=== PATIENT | female | born 1960 | race Hispanic/Latino ===

== ENCOUNTER 2024-11-11 08:02 | Emergency (ER) | payer BC ==
[~2024-11-11] VITALS: Ht 162.6 cm; Wt 73.7 kg
[2024-11-11] MEDS ORDERED: OLMESARTAN-HCT1 EAC1 (08:23)
[2024-11-11] MEDS ORDERED: OMEPRAZOLE40 MG PO (08:23)
[2024-11-11] MEDS ORDERED: ZEPBOUND2.5 MG/0.1 (08:23)
[2024-11-11] MEDS ORDERED: ATORVASTATIN CA20 MG PO (08:23)
[2024-11-11] MEDS: KETOROLAC TROMETHAMINE 30 MG/ML VIAL IV STA (09:05)
[2024-11-11] MEDS: CYCLOBENZAPRINE HCL 10 MG TAB PO ONE (09:05)
[2024-11-11] MEDS: ACETAMINOPHEN 325 MG TAB PO ONE (09:06)
[2024-11-11 09:47] VITALS: PULSE 58; RESP 16; TEMP 97.6; O2SAT 100
[2024-11-11] MEDS ORDERED: CYCLOBENZAPRINE5 MG PO (09:59)
[2024-11-11] MEDS ORDERED: KETOROLAC TROME10 MG PEG (09:59)
[2024-11-11] MEDS ORDERED: KETOROLAC TROME10 MG PO (10:06)
== END 2024-11-11 10:09 | disposition home or self-care (01) ==
LOC: FSED 08:14
DX: M54.9 Dorsalgia, unspecified (principal); I10 Essential (primary) hypertension; E78.5 Hyperlipidemia, unspecified; K21.9 Gastro-esophageal reflux disease without esophagitis
CPT/HCPCS: 74176; 80048; 81003; 85025; 96374; 99284; J1885

== ENCOUNTER 2024-12-18 18:45 | Emergency (ER) | payer BC ==
[~2024-12-18] VITALS: Ht 162.6 cm; Wt 73.5 kg
[~2024-12-18 18:45] MED LIST: ATORVASTATIN CA20 MG PO; CYCLOBENZAPRINE5 MG PO; KETOROLAC TROME10 MG PEG; KETOROLAC TROME10 MG PO; OLMESARTAN-HCT1 EAC1; OMEPRAZOLE40 MG PO; ZEPBOUND2.5 MG/0.1
[2024-12-18 19:29] VITALS: PULSE 100; RESP 18; TEMP 99.3
[2024-12-18] MEDS ORDERED: BENZONATATE200 MG PO (19:32)
[2024-12-18] MEDS ORDERED: VENTOLIN HFA18 GM INH (19:33)
[2024-12-18] MEDS: ALBUTEROL/IPRATROPIUM 3 ML NEB NEB ONE (19:55)
[2024-12-18 20:33] VITALS: BP 121/69; PULSE 100; RESP 18; TEMP 99.3; O2SAT 97
== END 2024-12-18 20:33 | disposition home or self-care (01) ==
LOC: FSED 19:18
DX: R05.9 Cough, unspecified (principal); J06.9 Acute upper respiratory infection, unspecified; I10 Essential (primary) hypertension; E78.5 Hyperlipidemia, unspecified; K21.9 Gastro-esophageal reflux disease without esophagitis
CPT/HCPCS: 99282